=== PATIENT | female | born 1985 | race Caucasian/White ===

== ENCOUNTER 2024-03-13 09:27 | Emergency (ER) | payer BC, SELFPAY ==
[2024-03-13 09:30] VITALS: BP 179/95
[2024-03-13 09:59] VITALS: BMI 38.4
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
== END 2024-03-13 11:09 | disposition home or self-care (01) ==
LOC: EMR 09:27
PROVIDERS: EMERGENCY PHYSICIAN Student in an Organized Health Care Education/Training Program
DX: S62.323A Displaced fracture of shaft of third metacarpal bone, left hand, initial encounter for closed fracture (principal); S62.311A Displaced fracture of base of second metacarpal bone, left hand, initial encounter for closed fracture; S62.355A Nondisplaced fracture of shaft of fourth metacarpal bone, left hand, initial encounter for closed fracture; V43.52XA Car driver injured in collision with other type car in traffic accident, initial encounter; R03.0 Elevated blood-pressure reading, without diagnosis of hypertension
CPT/HCPCS: 99283; 29125; 73130